=== PATIENT | male | born 1950 | race Caucasian/White ===

== ENCOUNTER → 2020-03-25 | Outpatient (CLI) | payer BC ==
[~2020-03-25] MED LIST: MULT-257 PO
[2020-03-25 15:50] LABS: BASOPHILS % (AUTO) 1 % (0-1); EOSINOPHILS % (AUTO) 1 % (1-7); LYMPHOCYTES % (AUTO) 30 % (22-44); MEAN CORPUSCULAR HEMOGLOBIN 31.7 pg (27.5-34.5); MEAN CORPUSCULAR HGB CONC 33.7 g/dL (33.2-36.2); MEAN PLATELET VOLUME 8.5 fL (7.4-10.4); MONOCYTES % (AUTO) 10 % (2-9); NEUTROPHILS % (AUTO) 58 % (42-75); PLATELET COUNT 209 x10^3/uL (130-400); RED CELL DISTRIBUTION WIDTH 13.6 % (9.4-14.8)
[2020-03-25 15:58] LABS: ALBUMIN 4.2 g/dL (3.4-5.0); ANION GAP 7 mmol/L (5-15); CALCIUM 9.3 mg/dL (8.5-10.1); CHLORIDE 103 mmol/L (98-107)
[2020-03-25 16:02] LABS: MD NO
[2020-03-25 16:04] LABS: ALANINE AMINOTRANSFERASE 18 U/L (12-78); ALKALINE PHOSPHATASE 65 U/L (45-117); BILIRUBIN,TOTAL 1.1 mg/dL (0.2-1.0); CREATININE 0.98 mg/dL (0.7-1.3); TOTAL PROTEIN 7.5 g/dL (6.4-8.2)
== END | disposition home or self-care (01) ==
LOC: STAR 13:56
PROVIDERS: ATTEND Surgery
DX: Z01.812 Encounter for preprocedural laboratory examination (principal); Z20.828 Contact with and (suspected) exposure to other viral communicable diseases; I44.0 Atrioventricular block, first degree; R00.1 Bradycardia, unspecified
CPT/HCPCS: 36415; 80053; 85025; 87635; 93005

== ENCOUNTER 2020-03-29 08:12 | Inpatient (IN) | payer BC, MEDICARE ==
[~2020-03-29] VITALS: Ht 177.8 cm; Wt 67.0 kg
[~2020-03-29 08:12] MED LIST changes: +BUPIVACAINE/PF 0.5% ONE; +EPINEPHRINE 1 MG/ML, 1ML ONE; +INDOCYANINE GREEN 25 MG VIAL ONE
[2020-03-29] MEDS ORDERED: CHLORHEXIDINE 15 ML UDC MM STA (08:25)
[2020-03-29] MEDS ORDERED: LACTATED RINGERS 1,000 ML IV SCH (08:30)
[2020-03-29] MEDS ORDERED: SCOPOLAMINE 1MG PATCH TD ONE (09:56)
[2020-03-29] MEDS ORDERED: FENTANYL PF 250 MCG/5ML ONE ×2 (10:22→11:30)
[2020-03-29] MEDS ORDERED: ONDANSETRON 2MG/ML, 2ML IVPush PRN (12:00)
[2020-03-29] MEDS ORDERED: hydrALAzine 20 MG/ML, 1ML IV PRN (12:00)
[2020-03-29] MEDS ORDERED: METHOCARBAMOL 1,000 MG in DEXTROSE 5% 100 ML IV PRN (12:00)
[2020-03-29] MEDS ORDERED: FENTANYL PF 100 MCG/2ML IV PRN (12:00)
[2020-03-29] MEDS ORDERED: OXYcodone 5 MG/5 ML ORAL.SOL UDC PO PRN (12:00)
[2020-03-29] MEDS ORDERED: EPHEDRINE 50 MG/ML, 1ML IVPush PRN (12:00)
[2020-03-29] MEDS ORDERED: HYDROmorphone 1 MG/ML, 1ML INJ IVPush PRN (12:00)
[2020-03-29] MEDS ORDERED: MEPERIDINE/PF 25MG/0.5ML IVPush PRN (12:00)
[2020-03-29] MEDS ORDERED: HALOPERIDOL 5 MG/ML IV PRN (12:00)
[2020-03-29] MEDS ORDERED: PROMETHAZINE 25 MG/ML, 1ML IVPush PRN (12:00)
[2020-03-29] MEDS ORDERED: ACETAMINOPHEN 325 MG TABLET PO PRN (12:00)
[2020-03-29] MEDS ORDERED: LABETALOL 5MG/ML, 20ML IV PRN (12:00)
[2020-03-29] MEDS ORDERED: DIAZEPAM 5 MG/ML, 2ML IVPush PRN (12:00)
[2020-03-29] MEDS ORDERED: CEFAZOLIN 1,000 MG ONE (13:13)
[2020-03-29] MEDS ORDERED: ONDANSETRON 2MG/ML, 2ML ONE (13:13)
[2020-03-29] MEDS ORDERED: PROPOFOL 10 MG/ML, 20ML ONE (13:13)
[2020-03-29] MEDS ORDERED: ROCURONIUM 10MG/ML,5ML ONE (13:13)
[2020-03-29] MEDS ORDERED: NEOSTIGMINE 1 MG/ML, 10ML ONE (13:13)
[2020-03-29] MEDS ORDERED: DEXAMETHASONE 4 MG/ML, 1ML ONE (13:13)
[2020-03-29] MEDS ORDERED: SUCCINYLCHOLINE 20 MG/ML, 10ML ONE (13:13)
[2020-03-29] MEDS ORDERED: GLYCOPYRROLATE 0.2MG/1ML, 5ML ONE (13:13)
[2020-03-29] MEDS ORDERED: OXYcodone 5 MG/5 ML ORAL.SOL UDC ONE (14:07)
[2020-03-29] MEDS ORDERED: ACETAMINOPHEN 650 MG/20.3 ML UDC ONE (14:07)
[2020-03-29] MEDS ORDERED: KETOROLAC 30 MG/1 ML ONE (15:05)
[2020-03-29] MEDS ORDERED: DIPHENHYDRAMINE 50 MG/ML, 1ML IVPush PRN (15:30)
[2020-03-29] MEDS ORDERED: OXYcodone IR 5MG TABLET PO PRN (15:30)
[2020-03-29] MEDS ORDERED: ONDANSETRON 2MG/ML, 2ML IV PRN (15:30)
[2020-03-29] MEDS ORDERED: DIPHENHYDRAMINE 25 MG CAPSULE PO PRN (15:30)
[2020-03-29] MEDS: D5%-0.45NACL+KCL 20MEQ 1,000 ML IV SCH (15:57)
[2020-03-29] MEDS: ACETAMINOPHEN 500 MG TABLET PO SCH ×2 (15:57→21:36)
[2020-03-29] MEDS: GABAPENTIN 300 MG CAPSULE PO SCH ×2 (15:58→21:36)
[2020-03-29 19:07] VITALS: BP 135/70
[2020-03-30 00:31] VITALS: BP 101/56
[2020-03-30 03:36] LABS: BASOPHILS % (AUTO) 0 % (0-1); EOSINOPHILS % (AUTO) 0 % (1-7); LYMPHOCYTES % (AUTO) 7 % (22-44); MEAN CORPUSCULAR HEMOGLOBIN 31.9 pg (27.5-34.5); MEAN CORPUSCULAR HGB CONC 34.3 g/dL (33.2-36.2); MEAN PLATELET VOLUME 8.8 fL (7.4-10.4); MONOCYTES % (AUTO) 7 % (2-9); NEUTROPHILS % (AUTO) 86 % (42-75); PLATELET COUNT 190 x10^3/uL (130-400); RED BLOOD COUNT 3.76 x10^6/uL (4.38-5.82); RED CELL DISTRIBUTION WIDTH 13.2 % (9.4-14.8)
[2020-03-30 03:37] LABS: MD NO
[2020-03-30] MEDS: ACETAMINOPHEN 500 MG TABLET PO SCH ×2 (03:49→09:12)
[2020-03-30 03:51] LABS: ALBUMIN 3.6 g/dL (3.4-5.0); ANION GAP 4 mmol/L (5-15); C-REACTIVE PROTEIN, QUANT 0.38 mg/dL (0.02-0.49); CALCIUM 8.2 mg/dL (8.5-10.1); CHLORIDE 104 mmol/L (98-107); CREATININE 1.16 mg/dL (0.7-1.3)
[2020-03-30] MEDS: D5%-0.45NACL+KCL 20MEQ 1,000 ML IV SCH (04:51)
[2020-03-30 04:58] VITALS: BP 106/57
[2020-03-30 06:50] VITALS: BP 102/57
[2020-03-30] MEDS ORDERED: ENOXAPARIN 40 MG/0.4 ML SQ SCH (09:00)
[2020-03-30] MEDS: GABAPENTIN 300 MG CAPSULE PO SCH (09:12)
[2020-03-30] MEDS ORDERED: OXYC5TAB3 PO (10:50)
[2020-03-30] MEDS ORDERED: GABA300C PO (10:56)
[2020-03-30] MEDS ORDERED: CELE200C PO (10:56)
[2020-03-30] MEDS ORDERED: ENOX40SY4 SQ (10:56)
== END 2020-03-30 12:07 | disposition home or self-care (01) | DRG 331 ==
LOC: ORIP 08:12 → 4NE 14:48 → DCLOUNGE 03-30 11:43
PROVIDERS: ADMIT Surgery; ATTEND Surgery
PROC: 8E0W4CZ Robotic Assisted Procedure of Trunk Region, Percutaneous Endoscopic Approach (ICD-10-PCS; 2020-03-29)
PROC: 0DTK4ZZ Resection of Ascending Colon, Percutaneous Endoscopic Approach (ICD-10-PCS; principal; 2020-03-29 10:00)
DX: C18.2 Malignant neoplasm of ascending colon (principal); I44.0 Atrioventricular block, first degree
CPT/HCPCS: 36415; S0020; 80048; 82040; 85025; 86140; 86850; 86900; 88309; G0378; J0171; J0690; J1100; J1650; J1885; J2405; J2704; J2710; J3010; J0330; J3480; J7120

== ENCOUNTER 2020-04-26 12:01 | Outpatient (CLI) | payer BC ==
[~2020-04-26 12:01] MED LIST changes: -BUPIVACAINE/PF 0.5% ONE; +CELE200C PO; +ENOX40SY4 SQ; -EPINEPHRINE 1 MG/ML, 1ML ONE; +GABA300C PO; -INDOCYANINE GREEN 25 MG VIAL ONE; +OXYC5TAB3 PO
== END 2020-04-26 23:59 | disposition home or self-care (01) ==
LOC: CFH 12:01
PROVIDERS: ATTEND Internal Medicine Cardiovascular Disease
DX: R93.1 Abnormal findings on diagnostic imaging of heart and coronary circulation (principal); R00.1 Bradycardia, unspecified
CPT/HCPCS: 78452; A9502